=== PATIENT | female | born 1965 ===

== ENCOUNTER 2021-09-08 06:30 | Outpatient (CLI) | payer BC, SELFPAY ==
--- NOTE | 2021-09-08 07:16 | CT_ITS ---
WS: [id number] CT ABDOMEN TECHNIQUE: Noncontrast CT of the abdomen with coronal and sagittal reformatted images. CLINICAL INFORMATION: RUQ PAIN/ABNORMAL WEIGHT LOSS/DIARRHEA COMPARISON: None. DLP: All CT scans at [facility] use at least one of these dose optimization techniques: automated e xposure control; mA and/or kV adjustment per patient size (includes targeted exams where dose is matc hed to clinical indication); or iterative reconstruction. FINDINGS: Lung bases are well aerated. Calcified granuloma LEFT lower lobe. Noncontrast liver is normal. Gallbl adder is contracted. Adrenal glands are normal. Prominent extrarenal pelvis bilaterally. Mild dilatat ion of the RIGHT proximal ureter. Distal ureter is not visualized on this abdominal CT. Slight grade 1 anterolisthesis L4 on L5. Splenic granulomas. Normal GE junction. Fat-containing tiny umbilical her [place]. CT/CT abdomen wo con [id number] IMPRESSION: 1. Gallbladder is contracted with mild wall thickening. Gallbladder can be fur ther evaluated with ultrasound and HIDA scan. 2. Prominent RIGHT extrarenal pelvis with mild RIGHT proximal ureterectasis. P elvic ureter is not visualized on this abdominal CT. This can be further evalua geremias with renal stone protocol CT of the abdomen and pelvis if clinical concern for obstructing calculus or flank pain. No hydronephrosis. 3. Tiny incidental fat-containing umbilical hernia. 4. Slight grade 1 anterolisthesis L4 on L5. 5. No other significant findings.
[2021-09-08] MEDS: barium sulfate 450 mL Oral Susp PO (07:38)
== END 2021-09-08 06:31 | disposition home or self-care (01) ==
LOC: RAD 06:33
PROVIDERS: Visit Provider Nurse Practitioner Family
DX: R10.11 Right upper quadrant pain (principal); R63.4 Abnormal weight loss; R19.7 Diarrhea, unspecified; N13.4 Hydroureter
CPT/HCPCS: 74150

== ENCOUNTER 2022-09-21 07:50 | Outpatient (CLI) | payer OTHER, SELFPAY ==
--- NOTE | 2022-09-21 07:59 | MM_ITS ---
WS: [id number] BILATERAL SCREENING DIGITAL TOMOSYNTHESIS MAMMOGRAM WITH CAD HISTORY: SCREENING COMPARISON: 11/16/2021 Bilateral CC and MLO views with tomosynthesis and synthetic mammography submitted. Computer aided det ection analyzed. Breast composition: The breasts are extremely dense, which lowers the sensitivity of mammography. No suspicious masses, microcalcifications or architectural distortion. Stable calcifications in the post erior LEFT breast. MM/[place] [id number] IMPRESSION: BI-RADS: 2-Benign FOLLOW UP: 1 Year Follow-up
== END 2022-09-21 07:51 | disposition home or self-care (01) ==
PROVIDERS: PCP Family Medicine; Visit Provider Family Medicine
DX: Z12.31 Encounter for screening mammogram for malignant neoplasm of breast (principal)
CPT/HCPCS: 77063; 77067